=== PATIENT | female | born 1990 | race Caucasian/White ===

== ENCOUNTER 2021-02-02 18:07 | Outpatient (CLI) | payer MEDICAID ==
[~2021-02-02] VITALS: Ht 175.3 cm; Wt 63.6 kg
[2021-02-02 19:00] VITALS: BP 122/64
[2021-02-02 19:02] LABS: MICROSCOPIC NOT IND
[2021-02-02 19:13] LABS: AMPHETAMINE SCREEN, URINE Negative (Negative); BARBITURATE SCREEN, URINE Negative (Negative); BENZODIAZEPINE SCREEN, URINE Negative (Negative); CANNABINOID SCREEN, URINE Positive (Negative); COCAINE SCREEN, URINE Negative (Negative); METHADONE SCREEN, URINE Negative (Negative); OPIATE SCREEN, URINE Negative (Negative)
[2021-02-02 19:23] LABS: BASOPHILS % (AUTO) 1 % (0-1); EOSINOPHILS % (AUTO) 1 % (1-7); LYMPHOCYTES % (AUTO) 16 % (22-44); MEAN CORPUSCULAR HEMOGLOBIN 29.8 pg (27.0-34.8); MEAN CORPUSCULAR HGB CONC 33.7 g/dL (32.4-35.8); MEAN PLATELET VOLUME 8.8 fL (7.4-10.4); MONOCYTES % (AUTO) 6 % (2-9); NEUTROPHILS % (AUTO) 76 % (42-75); PLATELET COUNT 235 x10^3/uL (130-400); RED BLOOD COUNT 4.51 x10^6/uL (3.82-5.3); RED CELL DISTRIBUTION WIDTH 13.6 % (9.6-15.2)
[2021-02-02 19:24] LABS: MD NO
== END 2021-02-02 20:15 | disposition home or self-care (01) ==
LOC: LDOP 18:07
PROVIDERS: ATTEND Obstetrics & Gynecology
DX: O32.1XX0 Maternal care for breech presentation, not applicable or unspecified (principal); Z3A.19 19 weeks gestation of pregnancy
CPT/HCPCS: 36415; 76805; 80307; 81003; 85025; 86592; 86762; 86850; 86900; 87086; 87340; 87806; 99211; G0463; G0475

== ENCOUNTER 2021-03-26 19:55 | Outpatient (CLI) | payer MEDICAID ==
[~2021-03-26] VITALS: Ht 175.3 cm; Wt 72.0 kg
[2021-03-26 20:25] LABS: MICROSCOPIC NOT IND
[2021-03-26 20:46] LABS: AMPHETAMINE SCREEN, URINE Negative (Negative); BARBITURATE SCREEN, URINE Negative (Negative); BENZODIAZEPINE SCREEN, URINE Negative (Negative); CANNABINOID SCREEN, URINE Positive (Negative); COCAINE SCREEN, URINE Negative (Negative); METHADONE SCREEN, URINE Negative (Negative); OPIATE SCREEN, URINE Negative (Negative)
[2021-03-26 21:04] VITALS: BP 117/66
[2021-03-26] MEDS ORDERED: TERBUTALINE 1 MG/ML, 1ML ONE (21:55)
[2021-03-26] MEDS ORDERED: TERBUTALINE 1 MG/ML, 1ML SQ ONE (22:00)
[2021-03-26] MEDS ORDERED: PLEASE ENTER ALLERGIES MC SCH (22:00)
== END 2021-03-26 22:52 | disposition home or self-care (01) ==
LOC: LDOP 19:55
PROVIDERS: ATTEND Obstetrics & Gynecology
DX: O26.892 Other specified pregnancy related conditions, second trimester (principal); R10.9 Unspecified abdominal pain; O32.1XX0 Maternal care for breech presentation, not applicable or unspecified; Z3A.27 27 weeks gestation of pregnancy
CPT/HCPCS: 59025; 80307; 81003; 87086; 96372; 99211; J3105; G0463